=== PATIENT | female | born 1935 | race Caucasian/White ===

== ENCOUNTER 2018-02-15 13:59 | Observation (INO) | payer OTHER, SELFPAY ==
[~2018-02-15] VITALS: Ht 162.6 cm; Wt 64.3 kg
[~2018-02-15 13:59] MED LIST: ALBU18HF2 IH; ASPI-1265 PO; BIMA2.5D4 OP; BUDE10.23 IH; METO50TA7 PO; MIANS NS; OMEP-84 PO; SIMV20TA5 PO; TELM1TAB14 PO; TIOT18CA7 IH
[2018-02-15 16:40] LABS: BASOPHILS # (AUTO) 0.1 X10'3 (0-0.2); BASOPHILS % (AUTO) 0.9 % (0-1); EOSINOPHILS # (AUTO) 0.4 X10'3 (0-0.9); EOSINOPHILS % (AUTO) 3.8 % (0-6); HEMATOCRIT 44.8 % (35.0-45.0); HEMOGLOBIN 15.1 g/dl (12.0-16.0); LYMPHOCYTES # (AUTO) 1.9 X10'3 (1.1-4.8); LYMPHOCYTES % (AUTO) 18.9 % (21-51); MEAN CORPUSCULAR HEMOGLOBIN 30.3 PG (27.0-31.0); MEAN CORPUSCULAR HGB CONC 33.8 % (33.0-36.5); MEAN CORPUSCULAR VOLUME 89.7 FL (78-98); MEAN PLATELET VOLUME 8.6 FL (7.4-10.4); MONOCYTES # (AUTO) 0.9 X10'3 (0-0.9); NEUTROPHILS # (AUTO) 6.8 X10'3 (1.8-7.7); NEUTROPHILS % (AUTO) 67.4 % (42-75); PLATELET COUNT 263 X10'3 (140-440); RED BLOOD COUNT 4.99 X10'6 (4.20-5.60); RED CELL DISTRIBUTION WIDTH 12.4 % (11.5-14.5); WHITE BLOOD COUNT 10.2 X10'3 (4.5-11.0)
[2018-02-15 16:57] LABS: INR 0.9 INR; PARTIAL THROMBOPLASTIN TIME 26 SECONDS (22-32); PROTHROMBIN TIME 9.7 SECONDS (9.0-12.0)
[2018-02-15 17:02] LABS: ALANINE AMINOTRANSFERASE 24 U/L (12-78); ALBUMIN 3.9 G/DL (3.4-5.0); ALBUMIN/GLOBULIN RATIO 1.1 (1.1-1.5); ALKALINE PHOSPHATASE 85 IU/L (46-116); ANION GAP 8 (8-16); ASPARTATE AMINO TRANSFERASE 20 U/L (10-37); BILIRUBIN,TOTAL 0.4 MG/DL (0.1-1.0); BLOOD UREA NITROGEN 16 MG/DL (7-18); CALCIUM 9.9 MG/DL (8.5-10.1); CHLORIDE 101 MMOL/L (99-107); GLUCOSE 101 MG/DL (70-104); POTASSIUM 3.5 MMOL/L (3.5-5.1); SODIUM 140 MMOL/L (135-145); TOTAL CARBON DIOXIDE 31.4 MMOL/L (24-32); TOTAL PROTEIN 7.4 G/DL (6.4-8.2); eGFR 53 ML/MIN
[2018-02-15] MEDS ORDERED: iohexol 350MG/ML 100ml bottle IV ONE (18:12)
[2018-02-15] MEDS ORDERED: FLUT1DIS10 (20:17)
[2018-02-15] MEDS ORDERED: FAMO-127 PO (20:17)
[2018-02-15] MEDS ORDERED: LOSA1TAB41 PO (20:17)
[2018-02-15] MEDS ORDERED: BRIM5DRO2 OP (20:17)
[2018-02-15] MEDS ORDERED: FLUT1DIS4 INH (20:17)
[2018-02-15] MEDS ORDERED: CITA-311 PO (20:17)
[2018-02-15] MEDS ORDERED: ATOR40TA PO (20:17)
[2018-02-15] MEDS ORDERED: NIFE60TA2 PO (20:17)
[2018-02-15] MEDS ORDERED: aspirin 325mg tablet PO ONE (20:55)
[2018-02-15] MEDS ORDERED: normal saline 1000ML IV soln IVB ONE (20:55)
[2018-02-15] MEDS ORDERED: clopidogrel 300mg tablet PO ONE (20:55)
[2018-02-15] MEDS ORDERED: temazepam 15mg capsule PO PRN (21:00)
[2018-02-15] MEDS ORDERED: acetaminophen 325mg tablet PO PRN ×2 (21:35)
[2018-02-15] MEDS ORDERED: mag hydrox/Alum hydrox/simeth 30ml oral suspension PO PRN (21:35)
[2018-02-15] MEDS ORDERED: HYDROcodone/acetaminophen 5mg/325mg tablet PO PRN (21:35)
[2018-02-15] MEDS ORDERED: magnesium hydroxide 30ml (MOM) UD suspension PO PRN (21:35)
[2018-02-15] MEDS ORDERED: HYDROcodone/acetaminophen 10/325mg tab PO PRN (21:35)
[2018-02-15] MEDS ORDERED: ondansetron/PF 4mg/2ml inj IV PRN (21:35)
[2018-02-15] MEDS ORDERED: albuterol 2.5 MG/3 ML nebule NEB PRN (21:45)
[2018-02-15] MEDS ORDERED: NIFEdipine XL 30mg tablet PO SCH (21:52)
[2018-02-15 22:29] LABS: CHOLESTEROL 156 MG/DL (0-200); HDL CHOLESTEROL 52 MG/DL (35-60); LDL CHOLESTEROL 83 MG/DL (50-100); TRIGLYCERIDES 136 MG/DL (20-135)
[2018-02-15 23:00] VITALS: BP 184/79
[2018-02-15] MEDS ORDERED: clopidogrel 75mg tablet PO SCH (23:15)
[2018-02-16 04:18] VITALS: BP 129/65
[2018-02-16 05:14] LABS: BASOPHILS % (AUTO) 0.4 % (0-1); EOSINOPHILS # (AUTO) 0.3 X10'3 (0-0.9); EOSINOPHILS % (AUTO) 3.1 % (0-6); HEMATOCRIT 42.6 % (35.0-45.0); HEMOGLOBIN 14.6 g/dl (12.0-16.0); LYMPHOCYTES # (AUTO) 1.7 X10'3 (1.1-4.8); LYMPHOCYTES % (AUTO) 14.7 % (21-51); MEAN CORPUSCULAR HEMOGLOBIN 30.4 PG (27.0-31.0); MEAN CORPUSCULAR HGB CONC 34.4 % (33.0-36.5); MEAN CORPUSCULAR VOLUME 88.5 FL (78-98); MEAN PLATELET VOLUME 8.9 FL (7.4-10.4); MONOCYTES # (AUTO) 0.8 X10'3 (0-0.9); MONOCYTES % (AUTO) 7.2 % (2-12); NEUTROPHILS # (AUTO) 8.4 X10'3 (1.8-7.7); NEUTROPHILS % (AUTO) 74.6 % (42-75); PLATELET COUNT 231 X10'3 (140-440); RED BLOOD COUNT 4.81 X10'6 (4.20-5.60); RED CELL DISTRIBUTION WIDTH 12.2 % (11.5-14.5); WHITE BLOOD COUNT 11.3 X10'3 (4.5-11.0)
[2018-02-16 06:00] VITALS: BP 131/58
[2018-02-16 06:06] LABS: ALBUMIN 3.5 G/DL (3.4-5.0); ANION GAP 9 (8-16); BLOOD UREA NITROGEN 12 MG/DL (7-18); BUN/CREATININE RATIO 14.5 (6.6-38.0); CALCIUM 9.8 MG/DL (8.5-10.1); CHLORIDE 102 MMOL/L (99-107); CREATININE 0.83 MG/DL (0.40-0.90); GLUCOSE 90 MG/DL (70-104); SODIUM 140 MMOL/L (135-145); TOTAL CARBON DIOXIDE 29.4 MMOL/L (24-32); eGFR 66 ML/MIN
[2018-02-16] MEDS ORDERED: magnesium Cl slow-release 64mg tablet PO PRN (06:35)
[2018-02-16] MEDS ORDERED: potassium Cl 20 mEq SR tablet PO PRN (06:35)
[2018-02-16] MEDS ORDERED: potassium Cl 40MEQ/NS 500ml 500 ML IV PRN ×2 (06:35)
[2018-02-16] MEDS: potassium Cl 20 mEq SR tablet PO PRN ×2 (07:23→11:55)
[2018-02-16] MEDS ORDERED: atorvastatin 20mg tablet PO SCH (08:00)
[2018-02-16] MEDS ORDERED: aspirin 81mg tab.chew PO SCH (08:00)
[2018-02-16] MEDS ORDERED: famotidine 20mg tablet PO PRN (08:00)
[2018-02-16] MEDS ORDERED: brimonidine 0.2% 5 ML ophthalmic drops EACHEYE SCH (08:00)
[2018-02-16] MEDS ORDERED: metoprolol succinate 25mg (24-HOUR) SR. Tablet PO SCH (08:00)
[2018-02-16] MEDS ORDERED: HYDROchlorothiazide 12.5mg capsule PO SCH (08:00)
[2018-02-16] MEDS ORDERED: aspirin 81mg tablet.DR PO SCH (08:00)
[2018-02-16] MEDS ORDERED: losartan 50mg tablet PO SCH (08:00)
[2018-02-16] MEDS ORDERED: non-formulary drug (Brimonidine Tartrate/Timolol (Combigan Eye Drops) 1 DROP) OP SCH (08:00)
[2018-02-16] MEDS ORDERED: clopidogrel 75mg tablet PO SCH ×2 (08:00)
[2018-02-16] MEDS ORDERED: timolol 0.5% ophthalmic solution 5ml bottle EACHEYE SCH (08:00)
[2018-02-16] MEDS: albuterol 2.5 MG/3 ML nebule NEB SCH ×3 (08:11→15:00)
[2018-02-16] MEDS ORDERED: BUDESONIDE 0.25 MG/2 ML AMPUL.NEB IH SCH ×2 (09:00)
[2018-02-16 10:00] VITALS: BP 120/100
[2018-02-16 14:00] VITALS: BP 138/90
[2018-02-16] MEDS ORDERED: CITALOpram 10mg tablet PO SCH (21:00)
== END 2018-02-16 18:28 | disposition home or self-care (01) ==
LOC: ER 14:00 → ED HOLD 21:34 → ORTHO 4S 22:42
PROVIDERS: ADMIT Hospitalist; ATTEND Hospitalist
DX: R20.2 Paresthesia of skin (principal); M79.605 Pain in left leg; M54.5 Low back pain; I73.9 Peripheral vascular disease, unspecified; E78.00 Pure hypercholesterolemia, unspecified; J44.9 Chronic obstructive pulmonary disease, unspecified; G89.29 Other chronic pain; I10 Essential (primary) hypertension; Z86.73 Personal history of transient ischemic attack (TIA), and cerebral infarction without residual deficits; Z87.891 Personal history of nicotine dependence
CPT/HCPCS: 36415; 70450; 70544; 70551; 71045; 71275; 72157; 72158; 74174; 80048; 80053; 80061; 82948; 83605; 84132; 85025; 85610; 85730; 87070; 93005; 93306; 93880; 93922; 93925; 94640; 94760; 97116; 97161; 99285; G0378; J7030; Q9967